=== PATIENT | male | born 1960 | race Two or more races ===

== ENCOUNTER 2024-09-12 14:25 | Emergency (ER) | payer MEDICAID, SELFPAY ==
[2024-09-12] VITALS (9 sets, daily range): BP systolic 70–135; BP diastolic 34–104; PULSE 80–105; RESP 14–20; TEMP 36.5–38.1; O2SAT 95–97
--- NOTE | 2024-09-12 15:39 | XR_ITS ---
Examination: AP chest single view Technique an AP portable upright chest single view Date and time: September 12, 2024 1615 hours Comparison February 27, 2024 INDICATIONS: Chest pain and dizziness beginning 2 days ago. FINDINGS: Mild prominence of the ventricle CABG Cardiac leads satisfactory position. Mild vascular congestion. No lobar pneumonia or pulmonary edema IMPRESSION: Mild vascular congestion. No lobar pneumonia or pulmonary edema
--- NOTE | 2024-09-12 15:40 | EDNOTE_ITS ---
<Statement entered by Yareli Burleson MD - 09/13/24 18:29> As co-signing physician, I was present and available for consult prn. I concur with the plan and care as documented by the midlevel provider. Upper Respiratory Inf. RME/HPI General Chief Complaint: Flu Like Symptoms Stated Complaint: COUGH, WEAKNESS SINCE 10PM LAST NIGHT Time Seen by Provider: 09/12/24 14:37 Arrival date/time: 09/12/24 14:25 RME / HPI RME / HPI Narrative: 64-year-old male patient came in for evaluation regarding cough. Patient is having nonproductive cough since last night associated with generalized body weakness, sore throat, severity moderate. Patient was also noted to have low- grade fever. Denies any chest pain, pain denies any abdominal pain denies any other complaints denies any ill contacts no medication was taken prior to arrival. In the triage patient was noted to have a blood pressure on the mid 70s systolic. Sepsis alert was initiated right away Related Data Home Medications ?Medication ?Instructions ?Recorded ?Confirmed Aspirin Ec * (ECOTRIN *) 81 mg PO QDAY Heart ##0 11/0101/10/23 insulin glargine 100 unit/mL 40 unit subcut BID 01/10/23 subcutaneous solution (Lantus U-100 Insulin) lisinopril 10 mg tablet 10 mg PO QDAY 05/21/2201/10 sitagliptin phosphate 50 1 tab PO BID 05/21/22 mg-metformin 1,000 mg tablet (Janumet) clopidogrel 75 mg tablet (Plavix) 75 mg PO QDAY 01/10/23 empagliflozin 25 mg tablet 25 mg PO QDAY 01/10/2301/01 (Jardiance) Previous Rx's ?Medication ?Instructions ?Recorded azithromycin 500 mg tablet See Rx Instructions PO .COM PLEX #6 05/09/23 tabs benzonatate 100 mg capsule 100 mg PO TID #14 caps 09/24 Allergies Allergy/AdvReac Type Severity Reaction Status Date / Time No Known Allergies Allergy Verified 09/12/24 14:31 Review of Systems Review of Systems Narrative Review of Systems: Review of system reviewed and within normal limits except mentioned in HPI ED Exam Narrative Physical exam: VITAL SIGNS: Reviewed. GENERAL APPEARANCE: Alert and interactive, follows commands, no acute distress, HEAD AND FACE: Non-traumatic. ENT: PERRL, pink conjunctivitis, eyelid no trauma, Mucous membrane moist. NECK: Supple, nontender, no nuchal rigidity. CHEST: No tenderness, no crepitus, no paradoxical movement, no retractions. LUNGS: Clear, well ventilated, symmetric, no rales, no wheezing, no ronchi, no stridor, good breath sounds bilaterally. HEART: Regular rate, regular rhythm, no murmur, no gallops. ABDOMEN: Soft, positive bowel sounds, nondistended, no guarding, nontender, no rebound, no masses, RECTAL: Deferred. GENITAL: Deferred. NEUROLOGICAL: Gross motor function intact sensory function intact, Appropriate for age. MUSCULOSKELETAL: low back nontender, full range of motion. EXTREMITIES: Nontender, full range of motion. SKIN: Color pink, dry, no rash, no lacerations, no abrasions, no contusions. LYMPHATICS: Deferred. Course Quality Measures none Orders Category Date Time Status Bedside COVID-19 Antigen Test NOW Care 09/12/24 15:39 Active Bedside Influenza A&B Antigen Test NOW Care 09/12/24 15:40 Completed EKG (ED ONLY) *Do not use* NOW Care 09/12/24 15:47 Completed Orthostatic Vitals NOW Care 09/12/24 21:55 Active EKG (ED Only) Stat Exams 09/12/24 15:47 Draft XR chest 1V Stat Exams 09/12/24 15:39 Completed Blood Culture (Lab) Stat Lab 09/12/24 15:55 Received CBC [CBC] Stat Lab 09/12/24 15:55 Completed CMP [Comprehensive Metabolic Panel] Stat Lab 09/12/24 15:55 Completed Lactate (Lactic Acid) Stat Lab 09/12/24 15:55 Completed Procalcitonin Stat Lab 09/12/24 15:55 Completed Troponin I Stat Lab 09/12/24 15:55 Completed UA, C/S IF [Urinalysis, C/S if Indicated] Stat Lab 09/12/24 17:35 Completed Ibuprofen Tab [Motrin Tab] Med 09/12/24 15:39 Discontinued 800 mg PO X1 ONE Ringers Lactated 1000 ml [Lactated Ringers] 1,000 ml Med 09/12/24 15:46 Discontinued IV 999 mls/hr Ringers Lactated 1000 ml [Lactated Ringers] 1,000 ml Med 09/12/24 15:47 Discontinued IV 999 mls/hr Ringers Lactated 1000 ml [Lactated Ringers] 1,000 ml Med 09/12/24 20:23 Discontinued IV 999 mls/hr Vital Signs Vital signs: Vital Signs Temperature 100.5 F H 09/12/24 15:46 Pulse Rate 105 H 09/12/24 15:46 Respiratory Rate 18 09/12/24 15:46 Blood Pressure 72/52 L 09/12/24 15:46 Pulse Oximetry (%) 96 09/12/24 15:46 Oxygen Delivery Method Room Air 09/12/24 15:46 Upper Respiratory Infection MDM Narrative [facility] Narrative:: 64-year-old male patient came in for evaluation regarding cough. Patient is having nonproductive cough since last night associated with generalized body weakness, sore throat, severity moderate. Patient was also noted to have low- grade fever. Denies any chest pain, pain denies any abdominal pain denies any other complaints denies any ill contacts no medication was taken prior to arrival. Sepsis alert was initiated arrived for fever and tachycardia. EKG as interpreted by me shows normal sinus rhythm, ventricular rate of 91 bpm, IL interval 188 MS, no ST segment elevation depression noted. Patient's workup today all came back normal no leukocytosis, chest x-ray came back unremarkable. EKG showed sinus rhythm, ventricular 91 bpm, no ST segment ovation depression noted. Patient received total of 3 L IV fluids, on multiple evaluation, patient's blood pressure was noted to be stable, above 120 systolic prior to discharge. No orthostatic hypotension noted. Patient data External records reviewed:: None Clinical information provided by:: patient Social determinants that could affect healthcare access:: none Patient has the following chronic illnesses:: Hypertension How is presenting disease/condition affected by chronic disease/condition?: exacerbated by Evaluation data The following diagnostics were reviewed and interpreted by me:: lab results, ra diology exam(s) and EKG tracing(s) Lab and/or radiology exams considered but not ordered:: None Interpretation Summary: See results MDM Medications / Prescriptions Medications or Prescriptions considered but not ordered:: None Medication administrations:: Medication Administration History Discontinued Medications Lactated Ringer's (Lactated Ringers) 1,000 mls @ 999 mls/hr IV .Q1H1M ONE Stop: 09/12/24 16:46 Last Infusion: 09/12/24 16:59 Dose: Infused Documented By: Admin: 09/12/24 15:53 Dose: 999 mls/hr Documented By: VG Lactated Ringer's (Lactated Ringers) 1,000 mls @ 999 mls/hr IV .Q1H1M ONE Stop: 09/12/24 16:47 Last Infusion: 09/12/24 16:59 Dose: Infused Documented By: Admin: 09/12/24 15:54 Dose: 999 mls/hr Documented By: VG Lactated Ringer's (Lactated Ringers) 1,000 mls @ 999 mls/hr IV .Q1H1M ONE Stop: 09/12/24 21:23 Last Infusion: 09/12/24 21:53 Dose: Infused Documented By: Admin: 09/12/24 20:50 Dose: 999 mls/hr Documented By: BD Ibuprofen (Ibuprofen Tab 400 Mg Tablet) 800 mg PO X1 ONE Stop: 09/12/24 15:40 Last Admin: 09/12/24 15:44 Dose: 800 mg Documented By: MF IV fluids, ibuprofen Consultations Consultation(s) initiated? (list below): No Diagnosis Upper Respiratory Differential Diagnosis: upper respiratory infection and viral infection Most likely diagnosis given after review of the tests above:: URI, Admission Indicated Admission indicated?: not indicated Explain why admission is indicated or not indicated:: Stable Admission Request Was there a request for admission?: No Disposition Plan Disposition Plan: Discharge Discharge Attestation Discharge Attestation: The patient and all family members were given an opportunity to ask questions and understood the discharge instructions. Discharge instructions specifically effects, indications for sooner follow up or return to the emergency department, and the expected course of current diagnosis. Patient condition: Stable Discharge Plan Plan Patient Disposition: HOME (Self Care) Discharge Disposition comment: Stable Prescriptions/Referrals Prescriptions/Med Rec: No Action Aspirin Ec * (ECOTRIN *) 81 MG TABLET.DR 81 mg PO QDAY Qty: 0 lisinopril 10 mg Tablet 10 mg PO QDAY Janumet 50-1,000 mg Tablet 1 tab PO BID insulin glargine [Lantus U-100 Insulin] 100 unit/mL Solution 40 unit SUBCUT BID clopidogrel [Plavix] 75 mg Tablet 75 mg PO QDAY Jardiance 25 mg Tablet 25 mg PO QDAY benzonatate 100 mg capsule 100 mg PO TID Qty: 14 0RF azithromycin 500 mg tablet See Rx Instructions .ROUTE .COMPLEX Qty: 6 0RF Rx Instructions: take 500 mg today (day 1), then 250 mg for 4 days (days 2-5) Referrals: No Primary/Family,Physician [Primary Care Provider] - In 1 week Problem List Clinical Impression: URI (upper respiratory infection) Patient/Caregiver Discharge Instructions Discharge Activity: activity as tolerated Education Materials: ED URI, Viral, No Abx (Adult) Additional Instructions: Thank you for the opportunity for serving you today. You are stable for discharged . You are advised to: Follow-up with your PCP in 1 to 2 days Return to ED for worsening of symptoms Increase oral fluids Take over the counter tylenol or Motrin as needed Print Language: Chinese Stand Alone Forms: [employer] Award Info., Patient Portal Info Letter
[2024-09-12] MEDS: IBUPROFEN TAB 400 MG TABLET 800 MG PO (15:44)
--- NOTE | 2024-09-12 15:47 | EKG_ITS ---
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
[2024-09-12] MEDS: RINGERS LACTATED 1000 ML 1,000 ML 999 ML IV ×3 (15:53→20:50)
[2024-09-12 16:13] LABS: Lactate (Lactic Acid) 2.1 mMol/L (0.4-2.0)
[2024-09-12 16:15] LABS: Basophils # (Auto) 0.1 Thou/mm3 (0.0-0.2); Basophils % (Auto) 1 % (0-2.5); Eosinophils # (Auto) 0.2 Thou/mm3 (0.0-0.5); Eosinophils % (Auto) 2 % (0-10); Hematocrit 47.3 % (41.0-53.0); Hemoglobin 16.7 g/dL (13.5-16.0); Immature Granulocytes % (Auto) 0 % (0-0); Immature Granulocytes Auto 0.03 Thou/mm3 (0.00-0.00); Lymphocytes # (Auto) 1.6 Thou/mm3 (1.0-4.8); Lymphocytes % (Auto) 16 % (10-50); Mean Corpuscular HGB Conc 35.3 g/dl (31.0-37.0); Mean Corpuscular Hemoglobin 31.1 pg (25.0-35.0); Mean Corpuscular Volume 88 fL (80-100); Monocytes # (Auto) 1.3 Thou/mm3 (0.0-0.8); Monocytes % (Auto) 13 % (0-12); Neutrophils # (Auto) 6.7 Thou/mm3 (1.8-7.7); Neutrophils % (Auto) 68 % (37-80); Nucleated Red Blood Cell % 0 /100 WBC (0); Platelet Count 233 Thou/mm3 (140-440); RDW Standard Deviation 42.5 fL (35.1-43.9); Red Blood Count 5.37 Miln/mm3 (4.50-5.90); White Blood Count 9.8 Thou/mm3 (3.8-10.6)
[2024-09-12 16:51] LABS: Alanine Aminotransferase 27 U/L (10-49); Albumin, Serum 4.6 gm/dL (3.4-4.8); Albumin/Globulin Ratio 1.5 (1.2-2.2); Alkaline Phosphatase 130 U/L (46-116); Anion Gap 10 (7-16); Aspartate Amino Transferase 48 U/L (0-34); BUN/Creatinine Ratio 14 Ratio (12-20); Blood Urea Nitrogen 18 mg/dL (9-23); Calcium 9.2 mg/dL (8.3-10.6); Calcium (Corrected) 9.2 mg/dL (8.5-10.1); Carbon Dioxide 31.2 mMol/L (20.0-31.0); Chloride 96 mMol/L (98-107); Creatinine (Component) 1.3 mg/dL (0.6-1.3); Glucose 191 mg/dL (74-106); Osmolality,Calculated 280 (275-295); Potassium 4.1 mMol/L (3.4-5.1); Procalcitonin 0.17 ng/ml (0.0-0.49); Sodium 137 mMol/L (136-145); Total Protein 7.6 gm/dL (5.7-8.2); Troponin I 0.044 ng/mL (0.0-0.045); eGFR > 60 See Note
[2024-09-12 17:45] LABS: Collection Type, Urine Clean Catch; Squamous Epithelial Cell,Urine 0 /hpf (0-5)
[2024-09-12 17:56] LABS: Bilirubin,Urine Negative (Negative); Blood,Urine Negative (Negative); Clarity,Urine Clear (Clear/Hazy); Color,Urine Lt-Yellow (Lt Yel-Yel); Culture Indicated,Urine Not Indicated; Glucose, Urine 4+ (Negative); Ketones,Urine Negative (Negative); Leukocyte Esterase,Urine Negative (Negative); Nitrite,Urine Negative (Negative); Protein,Urine Trace (Neg - Trace); RBC,Urine 2 /hpf (0-3); Specific Gravity,Urine 1.028 (1.001-1.035); Sperm,Urine Present; Urobilinogen,Urine Negative mg/dL (0.0-1.0); WBC,Urine 1 /hpf (0-5)
[2024-09-12 19:10] LABS: Reflex Lactate? Y
--- NOTE | 2024-09-12 19:49 | PC.NURSE ---
ambulated pt around er b/p after ambulation sitting position b/p 74/52 on right arm rechecked left arm 102/62. notified KACEY JEFFERS
== END 2024-09-12 22:19 | disposition home or self-care (01) ==
PROVIDERS: Nurse Practitioner Family; Emergency Provider Emergency Medicine
DX: J06.9 Acute upper respiratory infection, unspecified (principal); I25.2 Old myocardial infarction
CPT/HCPCS: 36415; 71045; 80053; 81001; 83605; 84145; 84484; 85025; 87040; 87400; 87811; 93005; 96360; 96361; 99284; J7120; A9270

== ENCOUNTER 2024-09-13 20:58 | Emergency (ER) | payer MEDICAID, SELFPAY ==
[2024-09-13 21:01] VITALS: BMI 31.4
[2024-09-13 21:15] VITALS: BP 126/74; PULSE 90; RESP 20; TEMP 36.9; O2SAT 96
--- NOTE | 2024-09-13 21:32 | EDNOTE_ITS ---
<Statement entered by Yareli Burleson MD - 09/14/24 03:41> As co-signing physician, I was present and available for consult prn. I concur with the plan and care as documented by the midlevel provider. ED Skin Abcess FB-RME/HPI General Chief complaint: Ankle/Foot Injury Stated complaint: RIGHT FOOT SWELLING AND REDNESS Time Seen by Provider: 09/13/24 21:27 Arrival date/time: 09/13/24 20:58 64M with history of HTN, DM, and CAD presents to ED with 1 day of R foot redness and swelling after he accidentally stepped on a nail yesterday. Patient has had a tetanus shot in the past 5 years. Limitations: no limitations Related Data Home Medications ?Medication ?Instructions ?Recorded ?Confirmed Aspirin Ec * (ECOTRIN *) 81 mg PO QDAY Heart ##0 11/0101/10/23 insulin glargine 100 unit/mL 40 unit subcut BID 01/10/23 subcutaneous solution (Lantus U-100 Insulin) lisinopril 10 mg tablet 10 mg PO QDAY 05/21/2201/10 sitagliptin phosphate 50 1 tab PO BID 05/21/22 mg-metformin 1,000 mg tablet (Janumet) clopidogrel 75 mg tablet (Plavix) 75 mg PO QDAY 01/10/23 empagliflozin 25 mg tablet 25 mg PO QDAY 01/10/2301/01 (Jardiance) Previous Rx's ?Medication ?Instructions ?Recorded azithromycin 500 mg tablet See Rx Instructions PO .COM PLEX #6 05/09/23 tabs benzonatate 100 mg capsule 100 mg PO TID #14 caps 09/24 ciprofloxacin HCl 500 mg tablet 500 mg PO BID 7 days # 14 tabs 09/13/24 (Cipro) clindamycin HCl 300 mg capsule 600 mg (2 x 300 mg) PO BID 7 days 09/13/24 #28 caps Allergies Allergy/AdvReac Type Severity Reaction Status Date / Time No Known Allergies Allergy Verified 09/13/24 21:00 Review of Systems Review of Systems Systems Reviewed: All systems reviewed, normal except as documented Constitutional Constitutional: Reports system reviewed and no additional complaints, except as documented, Denies fever(s) and Denies headache(s) ENT Ears, Nose, Mouth, and Throat: Denies disequilibrium and Denies headache(s) Cardiovascular Cardiovascular: Reports system reviewed and no additional complaints, except as documented, Denies chest pain and Denies dyspnea Respiratory Respiratory: Reports system reviewed and no additional complaints, except as documented, Denies cough and Denies dyspnea Gastrointestinal Gastrointestinal: Reports system reviewed and no additional complaints, except as documented, Denies abdominal pain, Denies nausea and Denies vomiting Integumentary/Breasts Skin/Breast: Reports as per HPI and Reports skin pain Neurologic Neurologic: Reports system reviewed and no additional complaints, except as documented, Denies confusion, Denies disequilibrium and Denies headache(s) Psychiatric Psychiatric: Denies confusion Past Medical History Past Medical History NEUROLOGIC: Negative Neurological Disorders CARDIAC: Positive Myocardial Infarction, Hypercholesterolemia, Congestive Heart Failure, Cellulitis and Hypertension; Negative Cardiac Disorders RESPIRATORY: Negative Chronic Obstructive Pulmonary Disease (COPD) or Asthma GASTROINTESTINAL: Positive Gastrointestinal Disorders GENITOURINARY: Negative Renal Disease ENDOCRINE: Positive Diabetes Mellitus Type 2; Negative Diabetes Mellitus Type 1 HEMATOLOGIC: Negative Blood Disorders or Sickle Cell Disease OTHER HISTORY: Positive Hospitalization; Negative Falls, Blood Transfusions, Anesthesia Reactions or Cancer Family History FAMILY HISTORY: Positive Family Cardiac Disorders Surgical History SURGICAL: Positive Cardiac Surgery, Open Heart Surgery, Coronary Stent and Pacemaker Social History SMOKING STATUS: Never smoker ED Exam General Limitations: Present no limitations General appearance: Present alert and in no apparent distress Head Head exam: Present atraumatic Eye Eye exam: Present normal appearance, PERRL and EOMI ENT ENT exam: Present normal exam, normal oropharynx and mucous membranes moist Neck Neck exam: Present normal inspection, full ROM and trachea midline Chest Chest inspection: Present normal inspection and symmetric chest wall rise Respiratory Respiratory exam: Present normal lung sounds bilaterally Cardiovascular Cardiovascular exam: Present regular rate, normal rhythm and normal heart sounds Abdominal Exam Abdominal exam: Present soft and normal bowel sounds Extremities Exam Extremities exam: Present full ROM Expanded Lower Extremity Exam Foot/toe exam: Present full ROM, tenderness, swelling, erythema and puncture wound (R plantar) Back Exam Back exam: Present normal inspection and full ROM Neurological Exam Neurological exam: Present alert, oriented X3 and CN II-XII intact Psychiatric Psychiatric exam: Present normal affect and normal mood Skin Skin exam: Present warm, dry, intact and normal color Course Quality Measures none Orders Category Date Time Status Ciprofloxacin HCl [Ciprofloxacin] Med 09/13/24 21:27 Once 500 mg PO X1 ONE Clindamycin [Cleocin] Med 09/13/24 21:29 Once 300 mg PO X1 ONE Vital Signs Vital signs: Vital Signs Temperature 98.5 F 09/13/24 21:15 Pulse Rate 90 09/13/24 21:15 Respiratory Rate 20 09/13/24 21:15 Blood Pressure 126/74 09/13/24 21:15 Pulse Oximetry (%) 96 09/13/24 21:15 Oxygen Delivery Method Room Air 09/13/24 21:15 O2 at 96% on RA and WNLs Skin / Abscess / Foreign Body MDM Narrative MDM Narrative:: 64M with history of HTN, DM, and CAD presents to ED with 1 day of R foot redness and swelling after he accidentally stepped on a nail yesterday. Patient has had a tetanus shot in the past 5 years. Physical exam reveals closed R plantar puncture wound with surrounding redness, swelling, and tenderness. Patient is afebrile, calm, and alert. Meds given. Will cover broadly given DM history. Patient data External records reviewed:: [facility] previous records Clinical information provided by:: patient Social determinants that could affect healthcare access:: none Patient has the following chronic illnesses:: HTN, DM, and CAD How is presenting disease/condition affected by chronic disease/condition?: exacerbated by Evaluation data The following diagnostics were reviewed and interpreted by me:: other (specify) (none) Lab and/or radiology exams considered but not ordered:: not ordered Interpretation Summary: n/a Medications / Prescriptions Medications or Prescriptions considered but not ordered:: ordered Medication administrations:: Medication Administration History Ciprofloxacin (Ciprofloxacin Hcl 250 Mg Tablet) 500 mg PO X1 ONE Stop: 09/13/24 21:28 Clindamycin HCl (Clindamycin 150 Mg Capsule) 300 mg PO X1 ONE Stop: 09/13/24 21:30 above Consultations Consultation(s) initiated? (list below): No Diagnosis Skin/Abscess Differential Diagnosis: abscess of skin or subcutaneous tissue, viral exanthem, dermatophytosis, urticaria, herpes zoster, allergic reaction to drug, cellulitis, eczema, insect bites, impetigo, contact dermatitis and other (puncture wound) Most likely diagnosis given after review of the tests above:: puncture wound Admission Indicated Admission indicated?: not indicated Admission Request Was there a request for admission?: No Disposition Plan Disposition Plan: Discharge Discharge Attestation Discharge Attestation: The patient and all family members were given an opportunity to ask questions and understood the discharge instructions. Discharge instructions specifically effects, indications for sooner follow up or return to the emergency department, and the expected course of current diagnosis. Patient condition: Stable Discharge Plan Plan Patient Disposition: HOME (Self Care) Discharge Disposition comment: Stable Prescriptions/Referrals Prescriptions/Med Rec: New clindamycin HCl 300 mg capsule 600 mg PO BID 7 Days Qty: 28 0RF ciprofloxacin HCl [Cipro] 500 mg tablet 500 mg PO BID 7 Days Qty: 14 0RF No Action Aspirin Ec * (ECOTRIN *) 81 MG TABLET.DR 81 mg PO QDAY Qty: 0 lisinopril 10 mg Tablet 10 mg PO QDAY Janumet 50-1,000 mg Tablet 1 tab PO BID insulin glargine [Lantus U-100 Insulin] 100 unit/mL Solution 40 unit SUBCUT BID clopidogrel [Plavix] 75 mg Tablet 75 mg PO QDAY Jardiance 25 mg Tablet 25 mg PO QDAY benzonatate 100 mg capsule 100 mg PO TID Qty: 14 0RF azithromycin 500 mg tablet See Rx Instructions .ROUTE .COMPLEX Qty: 6 0RF Rx Instructions: take 500 mg today (day 1), then 250 mg for 4 days (days 2-5) Problem List Clinical Impression: Puncture wound of foot Patient/Caregiver Discharge Instructions Education Materials: ED Puncture Wound (Foot) Additional Instructions: Please follow-up with PCP within 24-48 hours and return immediately if symptoms worsen. Print Language: Georgian Stand Alone Forms: Patient Portal Info Letter CLAUS/GREGORY Supervising Physician CLAUS/GREGORY Supervising Physician: Dr. Burleson
[2024-09-13] MEDS: CIPROFLOXACIN HCL 250 MG TABLET 500 MG PO (21:37)
[2024-09-13] MEDS: CLINDAMYCIN 150 MG CAPSULE 300 MG PO (21:37)
== END 2024-09-13 23:16 | disposition home or self-care (01) ==
LOC: SERX 21:31
PROVIDERS: Emergency Provider Emergency Medicine; PCP Family Medicine
DX: S91.331A Puncture wound without foreign body, right foot, initial encounter (principal); W45.0XXA Nail entering through skin, initial encounter
CPT/HCPCS: 99282; A9270

== ENCOUNTER 2024-09-17 12:30 | Inpatient (IN) | payer MEDICAID, SELFPAY ==
[2024-09-17 12:33] VITALS: BP 122/68; PULSE 89; RESP 18; TEMP 37.6; O2SAT 97; BMI 31.4
--- NOTE | 2024-09-17 12:57 | XR_ITS ---
Examination: Foot, right, 3 views Technique: AP, oblique, lateral views foot, 3 views Date and time of exam: September 17, 2024 1309 hours INDICATIONS: Stepped on a foreign body glass week with foot pain. FINDINGS: Soft tissue vascular calcification No acute fracture Soft tissue swelling plantar to the first metatarsophalangeal joint No opaque foreign body IMPRESSION: No opaque foreign body
--- NOTE | 2024-09-17 13:01 | XR_ITS ---
Examination: Duplex scan of the lower extremity, unilateral right Date and time of exam: 05/20/2024 1321 hours INDICATIONS: Right leg swelling and pain 5 days after injury to the leg Technique: Duplex scan of the extremity veins using B-mode/grayscale imaging and Doppler spectral analysis and color flow Attention is directed to internal echogenicity, compression and augmentation involving these veins, color flow assessment, spectral analysis Findings: Major deep venous structures in the extremity demonstrate normal course and caliber. There is no evidence of deep vein thrombosis. Normal color flow and spectral analysis Impression: Negative for DVT..
--- NOTE | 2024-09-17 13:57 | PD.EDLOWEX ---
Lower Extremity Injury RME/HPI General Chief Complaint: Extremity Injury, Lower Stated Complaint: PAIN/SWELLING R) LEG SINCE MONDAY Time Seen by Provider: 09/17/24 12:37 Arrival date/time: 09/17/24 12:30 64M with history of HTN, DM, and CAD presents to ED with 5-day history of R foot redness and swelling after he accidentally stepped on a nail 5 days ago. Patient has had a tetanus shot in the past 5 years. Currently patient is on antibiotics prescribed on last visit here in the emergency department patient reports that he now has significant swelling and redness Limitations: no limitations Related Data Home Medications ?Medication ?Instructions ?Recorded ?Confirmed Aspirin Ec * (ECOTRIN *) 81 mg PO QDAY Heart ##0 11/11/15 01/10/23 insulin glargine 100 unit/mL 40 unit subcut BID 05/21/22 01/10/23 subcutaneous solution (Lantus U-100 Insulin) lisinopril 10 mg tablet 10 mg PO QDAY 05/21/22 01/10/23 sitagliptin phosphate 50 1 tab PO BID 05/21/22 01/10/23 mg-metformin 1,000 mg tablet (Janumet) clopidogrel 75 mg tablet (Plavix) 75 mg PO QDAY 01/10/23 01/10/23 empagliflozin 25 mg tablet 25 mg PO QDAY 01/10/23 01/10/23 (Jardiance) Previous Rx's ?Medication ?Instructions ?Recorded azithromycin 500 mg tablet See Rx Instructions PO .COMPLEX #6 05/09/23 tabs benzonatate 100 mg capsule 100 mg PO TID #14 caps 05/09/23 ciprofloxacin HCl 500 mg tablet 500 mg PO BID 7 days #14 tabs 09/13/24 (Cipro) clindamycin HCl 300 mg capsule 600 mg (2 x 300 mg) PO BID 7 days 09/13/24 #28 caps Allergies Allergy/AdvReac Type Severity Reaction Status Date / Time No Known Allergies Allergy Verified 09/17/24 12:36 Review of Systems Review of Systems Systems Reviewed: All systems reviewed, normal except as documented Constitutional Constitutional: Reports system reviewed and no additional complaints, except as documented, Denies fever(s) and Denies headache(s) Eyes Eyes: Reports system reviewed and no additional complaints, except as documented and Denies blurry vision ENT Ears, Nose, Mouth, and Throat: Reports system reviewed and no additional complaints, except as documented, Denies headache(s), Denies nasal congestion and Denies nasal discharge Cardiovascular Cardiovascular: Reports system reviewed and no additional complaints, except as documented, Denies chest pain and Denies dyspnea Respiratory Respiratory: Reports system reviewed and no additional complaints, except as documented, Denies chest congestion, Denies cough and Denies dyspnea Gastrointestinal Gastrointestinal: Reports system reviewed and no additional complaints, except as documented and Denies abdominal pain Musculoskeletal Musculoskeletal: Reports system reviewed and no additional complaints, except as documented, Reports abnormal gait, Reports arthralgias and Reports other (Swelling redness right foot) Integumentary/Breasts Skin/Breast: Reports system reviewed and no additional complaints, except as documented, Denies rash and Reports wounds (Small puncture wound plantar aspect right foot) Neurologic Neurologic: Reports system reviewed and no additional complaints, except as documented, Reports as per HPI, Reports abnormal gait and Denies headache(s) Past Medical History Past Medical History NEUROLOGIC: Negative Neurological Disorders CARDIAC: Positive Myocardial Infarction, Hypercholesterolemia, Congestive Heart Failure, Cellulitis and Hypertension; Negative Cardiac Disorders RESPIRATORY: Negative Chronic Obstructive Pulmonary Disease (COPD) or Asthma GASTROINTESTINAL: Positive Gastrointestinal Disorders GENITOURINARY: Negative Renal Disease ENDOCRINE: Positive Diabetes Mellitus Type 2; Negative Diabetes Mellitus Type 1 HEMATOLOGIC: Negative Blood Disorders or Sickle Cell Disease OTHER HISTORY: Positive Hospitalization; Negative Falls, Blood Transfusions, Anesthesia Reactions or Cancer Family History FAMILY HISTORY: Positive Family Cardiac Disorders Surgical History SURGICAL: Positive Cardiac Surgery, Open Heart Surgery, Coronary Stent and Pacemaker Social History SMOKING STATUS: Former smoker ED Exam General Limitations: Present no limitations General appearance: Present alert and in no apparent distress Head Head exam: Present atraumatic, normocephalic and normal inspection Eye Eye exam: Present normal appearance, PERRL and EOMI; Absent conjunctival injection ENT ENT exam: Present normal exam, normal oropharynx and mucous membranes moist Neck Neck exam: Present normal inspection, full ROM and trachea midline Chest Chest inspection: Present normal inspection and symmetric chest wall rise Respiratory Respiratory exam: Present normal lung sounds bilaterally Cardiovascular Cardiovascular exam: Present regular rate, normal rhythm and normal heart sounds Abdominal Exam Abdominal exam: Present soft and normal bowel sounds Extremities Exam Extremities exam: Present full ROM, tenderness and normal capillary refill; Absent joint swelling Back Exam Back exam: Present normal inspection and full ROM Neurological Exam Neurological exam: Present alert, oriented X3 and CN II-XII intact Psychiatric Psychiatric exam: Present normal affect and normal mood Skin Skin exam: Present warm, dry, intact and normal color Course Quality Measures none Orders Category Date Time Status COVID-19 Screening Questionnaire NOW Care 09/17/24 13:59 Active Decision to Admit X1 Care 09/17/24 13:59 Completed Insert IV NOW Care 09/17/24 14:01 Active US venous doppler LE RT Stat Exams 09/17/24 13:01 Completed XR foot comp RT min 3V Stat Exams 09/17/24 12:57 Completed A1C [Glycohemoglobin w (eAG)] Stat Lab 09/17/24 13:42 Completed Blood Culture (Lab) Stat Lab 09/17/24 13:47 Received CBC Stat Lab 09/17/24 13:42 Completed CMP [Comprehensive Metabolic Panel] Stat Lab 09/17/24 14:42 Completed CRP [C-Reactive Protein] Stat Lab 09/17/24 14:42 Completed ESR [Sed Rate (ESR)] Stat Lab 09/17/24 13:42 Completed Lactic Acid [Lactate (Lactic Acid)] Stat Lab 09/17/24 13:42 Completed PT [Prothrombin Time with INR] Stat Lab 09/17/24 13:42 Completed Procalcitonin Stat Lab 09/17/24 14:42 Completed Morphine Inj Med 09/17/24 15:58 Discontinued 1 mg IVP X1 ONE Ondansetron Inj [Zofran Inj] Med 09/17/24 15:58 Discontinued 4 mg IVP X1 ONE Piper/Tazo 3.375 gm Premix [Zosyn] Med 09/17/24 14:00 Discontinued 3.375 gm in 50 ml IV X1 Vital Signs Vital signs: Vital Signs Temperature 99.6 F 09/17/24 12:33 Pulse Rate 89 09/17/24 12:33 Respiratory Rate 18 09/17/24 12:33 Blood Pressure 122/68 09/17/24 12:33 Pulse Oximetry (%) 97 09/17/24 12:33 Oxygen Delivery Method Room Air 09/17/24 12:33 O2 saturation 97% room air within normal limits Extremity Injury, Lower MDM Narrative MDM Narrative:: 64M with history of HTN, DM, and CAD presents to ED with 5-day history of R foot redness and swelling after he accidentally stepped on a nail 5 days ago. Patient has had a tetanus shot in the past 5 years. Currently patient is on antibiotics prescribed on last visit here in the emergency department patient reports that he now has significant swelling and redness On exam patient has swelling redness of the right foot patient has significant cellulitis Patient require admission as he has failed outpatient therapy and symptoms of worsen Ultrasound right lower extremity obtained no acute DVT noted x-ray is negative for any acute foreign bodies Lab work obtained 1533 I spoke with hospitalist who will admit the patient Patient data External records reviewed:: [facility] previous records Clinical information provided by:: patient Social determinants that could affect healthcare access:: none Patient has the following chronic illnesses:: See history How is presenting disease/condition affected by chronic disease/condition?: exacerbated by Evaluation data The following diagnostics were reviewed and interpreted by me:: lab results and radiology exam(s) Lab and/or radiology exams considered but not ordered:: Labs radiology obtain Interpretation Summary: Reviewed by me Medications / Prescriptions Medications or Prescriptions considered but not ordered:: Given Medication administrations:: Medication Administration History Acetaminophen (Acetaminophen 325 Mg Tablet) 650 mg PO Q6H PRN PRN Reason: Fever >101.5 Stop: 10/17/24 16:08 Hydrocodone Bitart/Acetaminophen (Hydrocodone/Apap 5/325 Tablet) 1 tab PO Q6HR PRN PRN Reason: moderate pain 4-6 Stop: 09/22/24 16:22 Clopidogrel Bisulfate (Clopidogrel Bisulfate 75 Mg Tablet) 75 mg PO QDAY [facility] Stop: 10/18/24 16:44 Dextrose (Dextrose 50%-Water Inj 50 Ml Syringe) 25 ml IV Q15MIN PRN PRN Reason: BG 50-70 responsive npo pt Stop: 10/17/24 16:25 Dextrose (Dextrose 50%-Water Inj 50 Ml Syringe) 50 ml IV Q15MIN PRN PRN Reason: BG <50 OR BG <70 & pt unresponsive Stop: 10/17/24 16:25 Furosemide (Furosemide 40 Mg Tablet) 40 mg PO QDAY [facility] Stop: 10/18/24 08:59 Glucagon (Glucagon Inj 1 Mg Vial) 1 mg IM Q15MIN PRN PRN Reason: BG <70, and no IV access Heparin Sodium (Porcine) (Heparin Sod Inj 5000 Unit/Ml Vial) 5,000 unit SC Q8HR [facility] Stop: 10/01/24 21:59 Vancomycin/Sodium Chloride (Vancomycin/Ns 1 Gm Ivpb) 200 mls @ 120 mls/hr IV X1 ONE Stop: 09/17/24 18:09 Ampicillin Sodium/Sulbactam (Sodium 3 gm/ Sodium Chloride) 100 mls @ 200 mls/hr IV Q6HR [facility] Stop: 09/24/24 22:29 Insulin Glargine (Insulin Glargine (Lantus) 5 Unit/0.05 Ml (Per 5 Units)) 30 unit SC QDAY [facility] Stop: 10/17/24 16:29 Insulin Human Lispro (Insulin Lispro (Admelog) 1 Unit/0.01 Ml Unit) 0 unit SC AC [facility]; Protocol Stop: 10/17/24 16:59 Lisinopril (Lisinopril 20 Mg Tablet) 10 mg PO QDAY [facility] Stop: 10/17/24 16:44 Morphine Sulfate (Morphine Sulf Inj 10 Mg/Ml Vial) 1 mg IVP Q2H PRN PRN Reason: PAIN SCALE 7-10 (Severe Stop: 09/22/24 16:08 Ondansetron HCl (Ondansetron Inj 2 Mg/Ml Inj 2 Ml) 4 mg IVP Q6H PRN; Protocol PRN Reason: NAUSEA OR VOMITING Stop: 10/17/24 16:08 Pharmacy Consult (Vancomycin Pharmacy To Dose 1 Each Each) 1 each IV QDAY PRN PRN Reason: CONSULT Stop: 10/17/24 16:29 Sennosides (Senna Tablet) 1 tab PO BID PRN; Protocol PRN Reason: CONSTIPATION Stop: 10/17/24 16:08 Discontinued Medications Piperacillin/Tazobactam/Dextrose (Zosyn) 3.375 gm in 50 mls @ 100 mls/hr IV X1 ONE Stop: 09/17/24 14:29 Last Admin: 09/17/24 16:06 Dose: 100 mls/hr Documented By: KRISTEN Ampicillin Sodium/Sulbactam (Sodium 3 gm/ Sodium Chloride) 100 mls @ 200 mls/hr IV Q6HR [facility] Stop: 09/24/24 17:59 Morphine Sulfate (Morphine Sulf Inj 10 Mg/Ml Vial) 1 mg IVP X1 ONE Stop: 09/17/24 15:59 Last Admin: 09/17/24 16:06 Dose: 1 mg Documented By: KRISTEN Ondansetron HCl (Ondansetron Inj 2 Mg/Ml Inj 2 Ml) 4 mg IVP X1 ONE; Protocol Stop: 09/17/24 15:59 Last Admin: 09/17/24 16:06 Dose: 4 mg Documented By: KRISTEN Oxycodone/Acetaminophen (Oxycodone/Apap 5/325 Tablet) 1 tab PO Q4H PRN PRN Reason: PAIN SCALE 4-6 (Moderate Stop: 09/22/24 16:08 Given Consultations Consultation(s) initiated? (list below): No Diagnosis Extremity Injury, Lower Differential Diagnosis: other (Cellulitis, abscess, foreign body) Most likely diagnosis given after review of the tests above:: Cellulitis Admission Indicated Admission indicated?: not indicated Admission Request Was there a request for admission?: No Disposition Plan Disposition Plan: Discharge Discharge Attestation Discharge Attestation: The patient and all family members were given an opportunity to ask questions and understood the discharge instructions. Discharge instructions specifically effects, indications for sooner follow up or return to the emergency department, and the expected course of current diagnosis. Patient condition: Stable Discharge Plan Plan Patient Disposition: Admit Acute Care w/in Hospital Discharge Disposition comment: Stable Problem List Clinical Impression: Cellulitis of leg, right, Puncture wound of foot, right PA/DIRECTOR POWER Supervising Physician PA/DIRECTOR POWER Supervising Physician: Dr. schafer
[2024-09-17 14:03] LABS: Lactate (Lactic Acid) 1.4 mMol/L (0.4-2.0)
[2024-09-17 14:08] LABS: Basophils # (Auto) 0.1 Thou/mm3 (0.0-0.2); Basophils % (Auto) 1 % (0-2.5); Eosinophils # (Auto) 0.1 Thou/mm3 (0.0-0.5); Eosinophils % (Auto) 1 % (0-10); Hematocrit 40.9 % (41.0-53.0); Hemoglobin 14.3 g/dL (13.5-16.0); Immature Granulocytes % (Auto) 0 % (0-0); Immature Granulocytes Auto 0.02 Thou/mm3 (0.00-0.00); Lymphocytes # (Auto) 1.4 Thou/mm3 (1.0-4.8); Lymphocytes % (Auto) 13 % (10-50); Mean Corpuscular Hemoglobin 31.3 pg (25.0-35.0); Mean Corpuscular Volume 90 fL (80-100); Monocytes # (Auto) 1.1 Thou/mm3 (0.0-0.8); Monocytes % (Auto) 10 % (0-12); Neutrophils # (Auto) 7.8 Thou/mm3 (1.8-7.7); Neutrophils % (Auto) 75 % (37-80); Nucleated Red Blood Cell % 0 /100 WBC (0); Platelet Count 248 Thou/mm3 (140-440); RDW Standard Deviation 42.5 fL (35.1-43.9); Red Blood Count 4.57 Miln/mm3 (4.50-5.90); White Blood Count 10.5 Thou/mm3 (3.8-10.6)
[2024-09-17 14:21] LABS: Prothrombin Time 11.4 Seconds (9.0-12.2)
[2024-09-17 14:41] LABS: Sed Rate (ESR) 71 mm/hr (0-20)
[2024-09-17 14:47] LABS: Glucose Estimated Average 209 mg/dL (80-131); Hemoglobin A1C 8.9 % Hgb (4.8-6.0)
[2024-09-17 15:56] LABS: Alanine Aminotransferase 17 U/L (10-49); Albumin, Serum 4.4 gm/dL (3.4-4.8); Albumin/Globulin Ratio 1.5 (1.2-2.2); Alkaline Phosphatase 100 U/L (46-116); Anion Gap 10 (7-16); Aspartate Amino Transferase 21 U/L (0-34); BUN/Creatinine Ratio 14 Ratio (12-20); Bilirubin,Total 0.8 mg/dL (0.3-1.2); Blood Urea Nitrogen 14 mg/dL (9-23); C-Reactive Protein 9.1 mg/dL (0.0-0.9); Calcium 9.1 mg/dL (8.3-10.6); Calcium (Corrected) 9.1 mg/dL (8.5-10.1); Carbon Dioxide 25.3 mMol/L (20.0-31.0); Chloride 101 mMol/L (98-107); Estimated Creatinine Clearance 71.8 mL/min (>60); Glucose 268 mg/dL (74-106); Osmolality,Calculated 281 (275-295); Potassium 4.5 mMol/L (3.4-5.1); Procalcitonin 0.16 ng/ml (0.0-0.49); Sodium 136 mMol/L (136-145); Total Protein 7.4 gm/dL (5.7-8.2); eGFR > 60 See Note
[2024-09-17] MEDS: PIPER/TAZO 3.375 GM PREMIX 3.375 GM/50 ML BAG IV (16:06)
[2024-09-17] MEDS: MORPHINE SULF INJ 10 MG/ML VIAL IVP (16:06)
[2024-09-17] MEDS: ONDANSETRON INJ 2 MG/ML INJ 2 ML 4 MG IVP (16:06)
[2024-09-17 16:13] VITALS: BP 149/89; PULSE 85; RESP 16; TEMP 36.7; O2SAT 97
--- NOTE | 2024-09-17 16:14 | PC.NURSE ---
Hospitalists at bedside to evaluate patient for admission, patient to er with c/o right foot injury. Patient states he stepped on metal this past and monday morning his foot was swollen, hot and red, cms intact, moderate redness noted to anterior and posterior foot. New orders received from hospitalists for pain medication. Pt. c/o 01/10 pain to right foot. Per hospitalists, will place admission orders, call light within reach.
--- NOTE | 2024-09-17 16:35 | PD.RESHP ---
Documentation for date of: 09/17/24 HPI History of Present Illness History of present illness: Mr. Davenport is a 62-year-old male with past medical history significant for hypertension, hyperlipidemia, insulin diabetes mellitus, CABG (in 2008), CAD status post stent, HFrEF status post [employer] placed approximately 3 to [address] Coy in [place] presented to the ED after noticing swelling in pain in his right foot. Patient stated he stepped on a metal wire on and came to the ED on Monday but was discharged on oral antibiotics which he has been taking since then. However patient noticed redness and swelling on Monday which he thought would get better with the antibiotics. However patient stated that the pain became unbearable which prompted him to come to the ED. patient denies any other associating symptoms like numbness tingling in his feet did not notice any discharge or open cuts or wounds in his foot. Patient denies any chest pain, palpitations dizziness shortness of breath, or abdominal pain. ED course In the ED patient's blood pressure is 122/68, pulse 89 temperature 99.6 Labs are within normal findings with the exception of ESR 71, C-reactive protein 9.1 glucose 268, hemoglobin A1c 8.9 Right foot x-ray shows soft tissue swelling plantar to the first metatarsaopharyngeal joint Ultrasound of right lower extremity is negative for DVTs In the ED patient received Zosyn x 1 PMH: Hypertension, hyperlipidemia, type 2 diabetes, HFrEF, CAD status post stent PSH: CABG in 2008, [employer] LOAN placement (2024) SH: Former tobacco smoker (quit 2018), denies alcohol or illicit drug use Home meds: Lantus 40 units, atorvastatin, lisinopril, Plavix, Jardiance, Janumet and aspirin Review of Systems Review of Systems Systems Reviewed: All systems reviewed, normal except as documented Exam Vital Signs Temp Pulse Resp BP Pulse Ox O2 Del Method 98.0 F 85 16 149/89 H 97 Room Air 09/17/24 16:13 09/17/24 16:13 09/17/24 16:13 09/17/24 16:13 09/17/24 16:13 09/17/24 16:13 Narrative Exam GENERAL: A&Ox3 [place] speaking cooperative, well groomed male, appears to be in mild distress due to pain NEURO: no focal neurological deficits HEENT: Atraumatic, Normocephalic. mucous membranes moist. Eyes open, symmetrical, & clear HEART: Normal Heart Sounds, [employer] device noticed on left side of chest LUNGS: Clear to auscultation with no wheezing or crackles. ABDOMEN: soft, non-distended, non-tender, bowel sounds heard, no guarding or rebound tenderness SKIN: No Rash or ecchymoses, erythematous,edematous and warm right foot EXTREMITIES: No edema, tenderness, able to move all 4 extremities Results: Labs 09/17/24 13:42 09/17/24 14:42 Labs: Short CBC 09/17/24 Range/Units 13:42 WBC 10.5 (3.8-10.6) Thou/mm3 Hgb 14.3 D (13.5-16.0) g/dL Hct 40.9 L (41.0-53.0) % Plt Count 248 (140-440) Thou/mm3 BMP 09/17/24 14:42 Sodium 136 Potassium 4.5 Chloride 101 Carbon Dioxide 25.3 BUN 14 Creatinine 1.0 Glucose 268 H Calcium 9.1 Liver Function 09/17/24 Range/Units 14:42 Total Bilirubin 0.8 (0.3-1.2) mg/dL AST 21 (0-34) U/L ALT 17 (10-49) U/L Alkaline Phosphatase 100 (46-116) U/L Albumin 4.4 (3.4-4.8) gm/dL Quality Measures Quality Measures none Advance care planning discussed with:: patient Medications Home Medications and Allergies Home Medications ?Medication ?Instructions ?Recorded ?Confirmed ?Type Aspirin Ec * (ECOTRIN *) 81 mg PO QDAY Heart ##0 11/11/15 01/10/23 History insulin glargine 100 unit/mL 40 unit subcut BID 05/21/22 01/10/23 History subcutaneous solution (Lantus U-100 Insulin) lisinopril 10 mg tablet 10 mg PO QDAY 05/21/22 01/10/23 History sitagliptin phosphate 50 1 tab PO BID 05/21/22 01/10/23 History mg-metformin 1,000 mg tablet (Janumet) clopidogrel 75 mg tablet (Plavix) 75 mg PO QDAY 01/10/23 01/10/23 History empagliflozin 25 mg tablet 25 mg PO QDAY 01/10/23 01/10/23 History (Jardiance) Allergies Allergy/AdvReac Type Severity Reaction Status Date / Time No Known Allergies Allergy Verified 09/17/24 12:36 Visit Medications Acetaminophen (Acetaminophen 325 Mg Tablet) 650 mg PO Q6H PRN PRN Reason: Fever >101.5 Stop: 10/17/24 16:08 Hydrocodone Bitart/Acetaminophen (Hydrocodone/Apap 5/325 Tablet) 1 tab PO Q6HR PRN PRN Reason: moderate pain 4-6 Stop: 09/22/24 16:22 Clopidogrel Bisulfate (Clopidogrel Bisulfate 75 Mg Tablet) 75 mg PO QDAY [facility] Stop: 10/18/24 16:44 Dextrose (Dextrose 50%-Water Inj 50 Ml Syringe) 25 ml IV Q15MIN PRN PRN Reason: BG 50-70 responsive npo pt Stop: 10/17/24 16:25 Dextrose (Dextrose 50%-Water Inj 50 Ml Syringe) 50 ml IV Q15MIN PRN PRN Reason: BG <50 OR BG <70 & pt unresponsive Stop: 10/17/24 16:25 Furosemide (Furosemide 40 Mg Tablet) 40 mg PO QDAY [facility] Stop: 10/18/24 08:59 Glucagon (Glucagon Inj 1 Mg Vial) 1 mg IM Q15MIN PRN PRN Reason: BG <70, and no IV access Heparin Sodium (Porcine) (Heparin Sod Inj 5000 Unit/Ml Vial) 5,000 unit SC Q8HR [facility] Stop: 10/01/24 21:59 Vancomycin/Sodium Chloride (Vancomycin/Ns 1 Gm Ivpb) 200 mls @ 120 mls/hr IV X1 ONE Stop: 09/17/24 18:09 Ampicillin Sodium/Sulbactam (Sodium 3 gm/ Sodium Chloride) 100 mls @ 200 mls/hr IV Q6HR [facility] Stop: 09/24/24 22:29 Insulin Glargine (Insulin Glargine (Lantus) 5 Unit/0.05 Ml (Per 5 Units)) 30 unit SC QDAY [facility] Stop: 10/17/24 16:29 Insulin Human Lispro (Insulin Lispro (Admelog) 1 Unit/0.01 Ml Unit) 0 unit SC [facility]; Protocol Stop: 10/17/24 16:59 Lisinopril (Lisinopril 2.5 Mg Tablet) 10 mg PO QDAY [facility] Stop: 10/17/24 16:44 Morphine Sulfate (Morphine Sulf Inj 10 Mg/Ml Vial) 1 mg IVP Q2H PRN PRN Reason: PAIN SCALE 7-10 (Severe Stop: 09/22/24 16:08 Ondansetron HCl (Ondansetron Inj 2 Mg/Ml Inj 2 Ml) 4 mg IVP Q6H PRN; Protocol PRN Reason: NAUSEA OR VOMITING Stop: 10/17/24 16:08 Pharmacy Consult (Vancomycin Pharmacy To Dose 1 Each Each) 1 each IV QDAY PRN PRN Reason: CONSULT Stop: 10/17/24 16:29 Sennosides (Senna Tablet) 1 tab PO BID PRN; Protocol PRN Reason: CONSTIPATION Stop: 10/17/24 16:08 Discontinued Medications Piperacillin/Tazobactam/Dextrose (Zosyn) 3.375 gm in 50 mls @ 100 mls/hr IV X1 ONE Stop: 09/17/24 14:29 Last Admin: 09/17/24 16:06 Dose: 100 mls/hr Ampicillin Sodium/Sulbactam (Sodium 3 gm/ Sodium Chloride) 100 mls @ 200 mls/hr IV Q6HR [facility] Stop: 09/24/24 17:59 Morphine Sulfate (Morphine Sulf Inj 10 Mg/Ml Vial) 1 mg IVP X1 ONE Stop: 09/17/24 15:59 Last Admin: 09/17/24 16:06 Dose: 1 mg Ondansetron HCl (Ondansetron Inj 2 Mg/Ml Inj 2 Ml) 4 mg IVP X1 ONE; Protocol Stop: 09/17/24 15:59 Last Admin: 09/17/24 16:06 Dose: 4 mg Oxycodone/Acetaminophen (Oxycodone/Apap 5/325 Tablet) 1 tab PO Q4H PRN PRN Reason: PAIN SCALE 4-6 (Moderate Stop: 09/22/24 16:08 Assessment & Plan Plan Mr. Davenport is a 62-year-old male with past medical history significant for hypertension, hyperlipidemia, insulin diabetes mellitus, CABG (in 2008), CAD status post stent, HFrEF status post [employer] placed approximately 3 to [address] Coy in [place] presented to the ED after noticing swelling in pain in his right foot after stepping on metal wire. Pt is admitted to med-tele for IV antibiotics. #Cellulitis, right foot Patient stepped on a metal wire on a , was discharged with oral antibiotics however patient continued to have swelling, erythema, warmth and worsening pain in the right foot. Right foot x-ray shows soft tissue swelling plantar to the first metatarsaopharyngeal joint ESR 71, C-reactive protein 9.1 Plan: -Unasyn and vancomycin started 09/17- -pain control as needed ordered -Wound care ordered -CT of right lower extremity ordered #Insulin-dependent diabetes mellitus - Hemoglobin A1c of 8.9 on 09/17/24 -Patient's home medications include Janumet, Januvia, 40 units of Lantus - Blood glucuse on admission 268 (pt states he did not take his diabetes medications since monday) -Glargine 30 units daily ordered - Insulin sliding scale ordered - hypoglycemia protocol ordered - Accu-Cheks AC #Hx of HFrEF s/p [employer]AN #History of CAD status post stents #Hx. of CABG #Hyperlipidemia -Resumed patient's home lisinopril, Plavix, Lasix -Pt follows Dr. Coy in [place] and states he is upto date with echo -Echo in our records is from 01/09/23: Normal LV size. Moderate systolic dysfunction. Moderate global hypokinesis wall motion. Estimated EF 35-40% -Will resume remainder after patient's med rec is completed Health Maintenance Disposition: Med-tele for IV antibiotics DVT Prophylaxis: Heparin 5000 units SC Q8 hrs GI Prophylaxis: not indicated Diet: carbohydrate consistent Lines: Peripheral lines Code status: Full Assessment and plan discussed with my attending physician Dr. Yanet Betts (PGY-1)- Internal medicine resident Attending Provider Attestation/Addendum Face to face evaluation was performed by me. I have personally seen and examined the patient. I discussed the assessment and plan with the entire medicine team. I reviewed available medical records, imaging studies, laboratory results. I agree with the above subjective data, objective findings, assessment and plan except as corrected by me or noted below Right lower extremity pain and swelling due to below Right lower extremity cellulitis, puncture wound Type 2 diabetes with hyperglycemia requiring chronic insulin therapy - Placed on IV antibiotics Unasyn and vancomycin for now, cultures, obtain CT of right lower leg?rule out deep infection/abscess. Insulin for diabetes More than > 30 minutes spent on the encounter
[2024-09-17] MEDS: VANCOMYCIN/NS 1 GM IVPB 200 ML IV (17:12)
--- NOTE | 2024-09-17 17:20 | PC.NURSE ---
Patient gone to ct via gurney with transporter.
--- NOTE | 2024-09-17 17:23 | XR_ITS ---
Examination: CT right lower extremity, without contrast. 2-D sagittal reconstructions. 2-D coronal reconstructions. 3-D reconstructions. Date and time of exam:September 17, 2024 1717 hours INDICATIONS: Redness swelling and pain involving the lower leg on the right after injury 3 days ago CTDI: vol (mGy):6.52 DLP: (mGycm):119 Technique: Multiple 1.25 mm axial sections of the right lower leg without intravenous contrast have been obtained. 2-D sagittal and coronal reconstructions have been obtained. 3-D reconstructions have been obtained. Low dose protocols were performed. One or more of the following dose reduction techniques were used; automated exposure control, adjustment of the mA and/or KV according to patient size, use of iterative reconstruction technique. Findings: Heavy vascular calcification Edema in the subcutaneous tissue posterior lower leg, ankle and around the foot including plantar surface of the foot No cortical bone destruction or findings of osteomyelitis No soft tissue abscess IMPRESSION: Diffuse cellulitis pattern. No soft tissue abscess Negative for osteomyelitis
[2024-09-17 17:34] VITALS: PULSE 85
[2024-09-17 18:01] VITALS: BP 121/86; PULSE 84
[2024-09-17] MEDS: Lisinopril 20 MG TABLET 10 MG PO (18:01)
[2024-09-17] MEDS: INSULIN GLARGINE (Lantus) 5 UNIT/0.05 ML (PER 5 UNITS) 30 UNIT SC (18:05)
[2024-09-17] MEDS: INSULIN LISPRO (AdmeLOG) 1 UNIT/0.01 ML UNIT SC (18:06)
[2024-09-17 19:26] VITALS: BP 121/86; PULSE 84; RESP 18; TEMP 36.7; O2SAT 98
[2024-09-17 19:47] VITALS: BMI 30.8
[2024-09-17 20:00] VITALS: BP 126/86; PULSE 91; RESP 19; TEMP 36.5; O2SAT 98
[2024-09-17] MEDS: AMPICILLIN/SULBAC INJ 3 GM in SODIUM CHLORIDE 0.9% (POP) 100 ML IV (21:37)
[2024-09-17] MEDS: HEPARIN SOD INJ 5000 UNIT/ML VIAL SC (21:38)
[2024-09-18] VITALS (7 sets, daily range): BP systolic 102–132; BP diastolic 66–82; PULSE 75–84; RESP 15–97; TEMP 36.1–36.5; O2SAT 95–98
[2024-09-18 05:09] LABS: Basophils # (Auto) 0.1 Thou/mm3 (0.0-0.2); Basophils % (Auto) 1 % (0-2.5); Eosinophils # (Auto) 0.4 Thou/mm3 (0.0-0.5); Eosinophils % (Auto) 5 % (0-10); Hemoglobin 13.3 g/dL (13.5-16.0); Immature Granulocytes % (Auto) 1 % (0-0); Immature Granulocytes Auto 0.05 Thou/mm3 (0.00-0.00); Lymphocytes # (Auto) 1.8 Thou/mm3 (1.0-4.8); Lymphocytes % (Auto) 23 % (10-50); Mean Corpuscular Hemoglobin 31.5 pg (25.0-35.0); Mean Corpuscular Volume 90 fL (80-100); Monocytes # (Auto) 0.8 Thou/mm3 (0.0-0.8); Monocytes % (Auto) 10 % (0-12); Neutrophils # (Auto) 4.7 Thou/mm3 (1.8-7.7); Neutrophils % (Auto) 60 % (37-80); Nucleated Red Blood Cell % 0 /100 WBC (0); Platelet Count 308 Thou/mm3 (140-440); RDW Standard Deviation 43.1 fL (35.1-43.9); Red Blood Count 4.22 Miln/mm3 (4.50-5.90); White Blood Count 7.8 Thou/mm3 (3.8-10.6)
[2024-09-18 05:20] LABS: Glucose Estimated Average 206 mg/dL (80-131); Hemoglobin A1C 8.8 % Hgb (4.8-6.0)
[2024-09-18] MEDS: AMPICILLIN/SULBAC INJ 3 GM in SODIUM CHLORIDE 0.9% (POP) 100 ML IV (05:37)
[2024-09-18] MEDS: HEPARIN SOD INJ 5000 UNIT/ML VIAL SC (05:38)
[2024-09-18 05:59] LABS: Alanine Aminotransferase 15 U/L (10-49); Albumin, Serum 3.8 gm/dL (3.4-4.8); Albumin/Globulin Ratio 1.4 (1.2-2.2); Alkaline Phosphatase 95 U/L (46-116); Anion Gap 10 (7-16); Aspartate Amino Transferase 18 U/L (0-34); BUN/Creatinine Ratio 14 Ratio (12-20); Bilirubin,Total 0.5 mg/dL (0.3-1.2); Blood Urea Nitrogen 13 mg/dL (9-23); Calcium 9.2 mg/dL (8.3-10.6); Calcium (Corrected) 9.4 mg/dL (8.5-10.1); Carbon Dioxide 25.2 mMol/L (20.0-31.0); Cardiac Risk Estimate 4.7 RATIO (4.0-6.7); Chloride 103 mMol/L (98-107); Cholesterol 104 mg/dL (132-200); Creatinine (Component) 0.9 mg/dL (0.6-1.3); Globulin 2.7 gm/dL (2.3-3.5); Glucose 219 mg/dL (74-106); HDL Cholesterol 22 mg/dL (40-60); LDL Cholesterol,Calculated 62 mg/dL (0-130); Magnesium 1.8 mg/dL (1.6-2.6); Osmolality,Calculated 282 (275-295); Potassium 4.5 mMol/L (3.4-5.1); Sodium 138 mMol/L (136-145); Total Protein 6.5 gm/dL (5.7-8.2); Triglycerides 100 mg/dL (30-150); eGFR > 60 See Note
[2024-09-18] MEDS: Furosemide 40 MG TABLET PO (08:33)
[2024-09-18] MEDS: Lisinopril 20 MG TABLET 10 MG PO (08:33)
[2024-09-18] MEDS: INSULIN GLARGINE (Lantus) 5 UNIT/0.05 ML (PER 5 UNITS) 30 UNIT SC (08:35)
[2024-09-18] MEDS: INSULIN LISPRO (AdmeLOG) 1 UNIT/0.01 ML UNIT SC (08:35)
--- NOTE | 2024-09-18 09:16 | PC.SS ---
Follow up note: On IV antibiotic. Blood cultures are pending.
[2024-09-18] MEDS: VANCOMYCIN/NS 1 GM IVPB 200 ML IV (10:20)
--- NOTE | 2024-09-18 10:57 | ESDS_ITS ---
Planned Discharge Date 09/18/24 DS: Providers Provider Date of admission: 09/17/24 16:09 Primary care physician: Physician No Primary/Family Admitting Provider: You Holt MD Attending Provider on Admission: Leny Cao MD Consults: 09/17/24 16:22 Referral Wound Care Routine Comment: Attending Provider on DC: Andrea Betts MD Discharging Provider: Andrea Betts MD DS: Diagnosis Problem List Completed Was Problem List Reviewed/Reconciled?: Yes Hospital Course Hospital Course Hospital course: Mr. Davenport is a 62-year-old male with past medical history significant for hypertension, hyperlipidemia, insulin diabetes mellitus, CABG (in 2008), CAD status post stent, HFrEF status post CHILD WELFARE DIRECTOR placed approximately 3 to [address] Coy in [place] presented to [facility] ED on 09/17/24 after noticing swelling in pain in his right foot. Patient stated he stepped on a metal wire on and came to the ED on Monday but was discharged on oral antibiotics which showed no improvement. Imaging of the right foot showed soft tissue swelling plantar to the first metaphalangeal joint and ultrasound was negative for DVT. CT of the right foot showed diffuse cellulitis pattern no soft tissue abscess and was negative for osteomyelitis. Patient was started on IV antibiotics and wound care was ordered. The next day patient had significant improvement in his pain remain afebrile with no white count and patient is hemodynamically stable to be discharged home to self-care. Discharge Recommendations -Follow up with primary care physician within 1 week of discharge -Keep your foot clean and dry, and avoid walking barefoot -You have been prescribed antibiotics for additional 9 days, please complete the course as directed -Continue rest of medications as previously prescribed -Return to the ED or call EMS if symptoms return and/or worsen Hospitalization Diagnosis #Cellulitis, right foot #Insulin-dependent diabetes mellitus #Hx of HFrEF s/p CHILD WELFARE DIRECTOR #History of CAD status post stents #Hx. of CABG #Hyperlipidemia Time Spent with Patient Time attestation: Total time spent providing and/or coordinating discharge services: Time spent: Greater than 30 minutes Exam Vital Signs Temp Pulse Resp BP Pulse Ox O2 Del Method 97.7 F 77 18 106/66 95 Room Air 09/18/24 08:10 09/18/24 10:45 09/18/24 08:10 09/18/24 08:33 09/18/24 08:10 09/18/24 08:10 Narrative Exam GENERAL: A&Ox3 [place]auan speaking cooperative, well groomed male, appears to be in mild distress due to pain NEURO: no focal neurological deficits HEENT: Atraumatic, Normocephalic. mucous membranes moist. Eyes open, symmetrical, & clear HEART: Normal Heart Sounds, CHILD WELFARE DIRECTOR device noticed on left side of chest LUNGS: Clear to auscultation with no wheezing or crackles. ABDOMEN: soft, non-distended, non-tender, bowel sounds heard, no guarding or rebound tenderness SKIN: No Rash or ecchymoses, erythematous,edematous and warm right foot EXTREMITIES: No edema, tenderness, able to move all 4 extremities Discharge Plan Plan Patient Disposition: HOME (Self Care) Patient condition on transfer: Stable Care Plan Goals: -Follow up with primary care physician within 1 week of discharge -Keep your foot clean and dry, and avoid walking barefoot -You have been prescribed antibiotics for additional 9 days, please complete the course as directed -Continue rest of medications as previously prescribed -Return to the ED or call EMS if symptoms return and/or worsen -Colton un seguimiento con strong medico de cabecera dentro de marian semana despues. -Mantenga strong pie limpio y seco y evite caminar descalzo. -Le carvalho recetado antibioticos johanna 9 sheridan adicionales. Complete el tratamiento dom las indicaciones. -Coninue tomando el shazia de seda medicamentos dom lo prescrito previamente. -Regrese al departamento de emergencias medicas si los sintomas regresan y/o empeoran. Prescriptions/Referrals Prescriptions/Med Rec: New amoxicillin-pot clavulanate 875-125 mg tablet 1 tab PO BID 9 Days Qty: 18 0RF doxycycline hyclate 100 mg tablet 100 mg PO BID 9 Days Qty: 18 0RF Continued Aspirin Ec * (ECOTRIN *) 81 MG TABLET.DR 81 mg PO QDAY Qty: 0 furosemide 40 mg tablet 40 mg PO DAILY Patient Comments: TAKE 1 TABLET BY MOUTH ONCE DAILY atorvastatin 80 mg tablet 80 mg PO DAILY Patient Comments: TAKE 1 TABLET BY MOUTH ONCE DAILY Jardiance 25 mg tablet 25 mg PO QAM clopidogrel [Plavix] 75 mg tablet 75 mg PO QDAY Janumet 50-1,000 mg tablet 1 tab PO BID lisinopril 10 mg Tablet 10 mg PO QDAY insulin glargine [Lantus U-100 Insulin] 100 unit/mL Solution 40 unit SUBCUT BID Discontinued Janumet 50-1,000 mg Tablet 1 tab PO BID clopidogrel [Plavix] 75 mg Tablet 75 mg PO QDAY Jardiance 25 mg Tablet 25 mg PO QDAY clindamycin HCl 300 mg capsule 600 mg PO BID 7 Days Qty: 28 0RF ciprofloxacin HCl [Cipro] 500 mg tablet 500 mg PO BID 7 Days Qty: 14 0RF Referrals: No Primary/Family,Physician [Primary Care Provider] - Patient/Caregiver Discharge Instructions Education Materials: Discharge Instructions for Cellulitis Print Language: Palauan Stand Alone Forms: Yanni Award Info., Patient Portal Info Letter Discharge Order Discharge Orders: Discharge (Routine); Ordered 09/18/24 Ordered By: Andrea Betts Quality Discharge Quality Measures VTE prophylaxis
--- NOTE | 2024-09-18 12:25 | PC.NURSE ---
1200 pt is discharged, papers are signed, Milton ALEXIS as copying machine mechanic
--- NOTE | 2024-09-18 15:49 | PC.SS ---
SS met with patient regarding his d/c plan. Pt is alert/oriented. Pt was admitted for Cellulites. Pt confirmed demographic and contact information is correct on facesheet. Pt resides with brothers. Pt ambulates independently without assistance or DME. Pt is ok with all ADLs. Patient?s pharmacy of choice is [facility]. Pt named his brother, Zach Xavier medical decision maker if he is unable. Patient?s choice is to return home upon d/c. Pt states he followed up with PCP in September. D/C plan: Return home Next of Kin: Zach Xavier, brother, phone# [phone] PCP: [facility] Address: Correct on facesheet
== END 2024-09-18 14:29 | disposition home or self-care (01) | DRG 383 ==
LOC: SERX 15:00 → SERHOLD 16:27 → S3NX 09-18 06:31 → SERHOLD 09-19 06:23 → S3NX 09-19 06:23
PROVIDERS: Nurse Practitioner Primary Care; Admitting Provider Internal Medicine; Emergency Provider Family Medicine; Visit Provider Internal Medicine
DX: L03.115 Cellulitis of right lower limb (principal); Z95.5 Presence of coronary angioplasty implant and graft; I25.10 Atherosclerotic heart disease of native coronary artery without angina pectoris; I11.0 Hypertensive heart disease with heart failure; I50.22 Chronic systolic (congestive) heart failure; E78.5 Hyperlipidemia, unspecified; W45.0XXA Nail entering through skin, initial encounter; Z87.891 Personal history of nicotine dependence; Z79.4 Long term (current) use of insulin; S91.331A Puncture wound without foreign body, right foot, initial encounter; E11.65 Type 2 diabetes mellitus with hyperglycemia; Z79.02 Long term (current) use of antithrombotics/antiplatelets; Z79.84 Long term (current) use of oral hypoglycemic drugs; Z95.1 Presence of aortocoronary bypass graft
CPT/HCPCS: 36415; 73630; 73700; 80053; 80061; 83036; 83605; 83735; 84100; 84145; 85025; 85610; 85652; 86140; 87040; 93225; 93971; 96365; 96366; 96367; 96372; 96375; G0378; J0295; J1644; J1815; J2270; J2405; J2543; J3370; A9270

== ENCOUNTER → 2024-10-17 | Outpatient (CLI) | payer MEDICAID, SELFPAY | END | disposition home or self-care (01) | PROVIDERS: PCP Family Medicine; Referring Provider Family Medicine; Visit Provider Student in an Organized Health Care Education/Training Program | DX: E11.621 Type 2 diabetes mellitus with foot ulcer (principal); L97.515 Non-pressure chronic ulcer of other part of right foot with muscle involvement without evidence of necrosis; S91.331A Puncture wound without foreign body, right foot, initial encounter; W22.8XXA Striking against or struck by other objects, initial encounter; I10 Essential (primary) hypertension; I73.9 Peripheral vascular disease, unspecified; I50.9 Heart failure, unspecified; Z95.0 Presence of cardiac pacemaker; Z89.422 Acquired absence of other left toe(s); Z87.891 Personal history of nicotine dependence; Z79.4 Long term (current) use of insulin; Z79.84 Long term (current) use of oral hypoglycemic drugs | CPT/HCPCS: 97597; 99212; A9270; G0463 ==

== ENCOUNTER → 2024-10-21 | Outpatient (CLI) | payer MEDICAID, SELFPAY | END | disposition home or self-care (01) | PROVIDERS: PCP Family Medicine; Referring Provider Family Medicine; Visit Provider Student in an Organized Health Care Education/Training Program | DX: E11.621 Type 2 diabetes mellitus with foot ulcer (principal); L97.512 Non-pressure chronic ulcer of other part of right foot with fat layer exposed; S91.331A Puncture wound without foreign body, right foot, initial encounter; W22.8XXA Striking against or struck by other objects, initial encounter; I10 Essential (primary) hypertension; I73.9 Peripheral vascular disease, unspecified; I50.9 Heart failure, unspecified; Z95.0 Presence of cardiac pacemaker; Z89.422 Acquired absence of other left toe(s); Z79.4 Long term (current) use of insulin; Z79.84 Long term (current) use of oral hypoglycemic drugs | CPT/HCPCS: 11042; A9270 ==

== ENCOUNTER → 2024-10-28 | Outpatient (CLI) | payer MEDICAID, SELFPAY | END | disposition home or self-care (01) | LOC: SWHD 14:35 | PROVIDERS: PCP Family Medicine; Referring Provider Family Medicine; Visit Provider Student in an Organized Health Care Education/Training Program | DX: E11.621 Type 2 diabetes mellitus with foot ulcer (principal); L97.512 Non-pressure chronic ulcer of other part of right foot with fat layer exposed; S91.331A Puncture wound without foreign body, right foot, initial encounter; W22.8XXA Striking against or struck by other objects, initial encounter; I73.9 Peripheral vascular disease, unspecified; I50.9 Heart failure, unspecified; Z95.0 Presence of cardiac pacemaker; Z89.422 Acquired absence of other left toe(s); Z79.4 Long term (current) use of insulin; Z79.84 Long term (current) use of oral hypoglycemic drugs | CPT/HCPCS: 97597; A9270 ==

== ENCOUNTER → 2024-11-04 | Outpatient (CLI) | payer MEDICAID, SELFPAY | END | disposition home or self-care (01) | LOC: SWHD 14:40 | PROVIDERS: PCP Family Medicine; Referring Provider Family Medicine; Visit Provider Surgery | DX: E11.621 Type 2 diabetes mellitus with foot ulcer (principal); S91.331A Puncture wound without foreign body, right foot, initial encounter; W22.8XXA Striking against or struck by other objects, initial encounter; L97.515 Non-pressure chronic ulcer of other part of right foot with muscle involvement without evidence of necrosis; I73.9 Peripheral vascular disease, unspecified; I50.9 Heart failure, unspecified; Z95.0 Presence of cardiac pacemaker; Z89.422 Acquired absence of other left toe(s); Z79.4 Long term (current) use of insulin; Z79.84 Long term (current) use of oral hypoglycemic drugs | CPT/HCPCS: 11042; A9270 ==

== ENCOUNTER → 2024-11-11 | Outpatient (CLI) | payer MEDICAID, SELFPAY | END | disposition home or self-care (01) | LOC: SWHD 13:53 | PROVIDERS: PCP Family Medicine; Referring Provider Family Medicine; Visit Provider Student in an Organized Health Care Education/Training Program | DX: E11.621 Type 2 diabetes mellitus with foot ulcer (principal); S91.331A Puncture wound without foreign body, right foot, initial encounter; W22.8XXA Striking against or struck by other objects, initial encounter; L97.515 Non-pressure chronic ulcer of other part of right foot with muscle involvement without evidence of necrosis; I50.9 Heart failure, unspecified; Z95.0 Presence of cardiac pacemaker; Z89.422 Acquired absence of other left toe(s); Z79.4 Long term (current) use of insulin; Z79.84 Long term (current) use of oral hypoglycemic drugs | CPT/HCPCS: 11043; A9270 ==

== ENCOUNTER → 2024-11-20 | Outpatient (CLI) | payer MEDICAID, SELFPAY | END | disposition home or self-care (01) | PROVIDERS: PCP Family Medicine; Referring Provider Family Medicine; Visit Provider Student in an Organized Health Care Education/Training Program | DX: S91.331A Puncture wound without foreign body, right foot, initial encounter (principal); W22.8XXA Striking against or struck by other objects, initial encounter; L97.515 Non-pressure chronic ulcer of other part of right foot with muscle involvement without evidence of necrosis; I50.9 Heart failure, unspecified; Z95.0 Presence of cardiac pacemaker; Z79.84 Long term (current) use of oral hypoglycemic drugs; Z79.4 Long term (current) use of insulin | CPT/HCPCS: 97597; A9270 ==

== ENCOUNTER → 2024-11-27 | Outpatient (CLI) | payer MEDICAID, SELFPAY | END | disposition home or self-care (01) | LOC: SWHD 11:27 | PROVIDERS: PCP Family Medicine; Referring Provider Family Medicine; Visit Provider Student in an Organized Health Care Education/Training Program | DX: S91.331A Puncture wound without foreign body, right foot, initial encounter (principal); W22.8XXA Striking against or struck by other objects, initial encounter; L97.515 Non-pressure chronic ulcer of other part of right foot with muscle involvement without evidence of necrosis; I50.9 Heart failure, unspecified; Z79.4 Long term (current) use of insulin; Z79.84 Long term (current) use of oral hypoglycemic drugs | CPT/HCPCS: 97597; A9270 ==

== ENCOUNTER → 2024-12-04 | Outpatient (CLI) | payer MEDICAID, SELFPAY | END | disposition home or self-care (01) | LOC: SWHD 13:09 | PROVIDERS: PCP Family Medicine; Referring Provider Family Medicine; Visit Provider Student in an Organized Health Care Education/Training Program | DX: S91.331A Puncture wound without foreign body, right foot, initial encounter (principal); W22.8XXA Striking against or struck by other objects, initial encounter; L97.515 Non-pressure chronic ulcer of other part of right foot with muscle involvement without evidence of necrosis; I50.9 Heart failure, unspecified; Z79.4 Long term (current) use of insulin; Z79.84 Long term (current) use of oral hypoglycemic drugs | CPT/HCPCS: 97597; A9270 ==

== ENCOUNTER → 2024-12-13 | Outpatient (CLI) | payer MEDICAID, SELFPAY | END | disposition home or self-care (01) | LOC: SWHD 13:03 | PROVIDERS: PCP Family Medicine; Referring Provider Family Medicine; Visit Provider Surgery | DX: S91.331A Puncture wound without foreign body, right foot, initial encounter (principal); W22.8XXA Striking against or struck by other objects, initial encounter; L97.512 Non-pressure chronic ulcer of other part of right foot with fat layer exposed; I50.9 Heart failure, unspecified; Z79.84 Long term (current) use of oral hypoglycemic drugs; Z79.4 Long term (current) use of insulin | CPT/HCPCS: 97597; A9270 ==

== ENCOUNTER → 2024-12-23 | Outpatient (CLI) | payer MEDICAID, SELFPAY | END | disposition home or self-care (01) | LOC: SWHD 13:49 | PROVIDERS: PCP Family Medicine; Referring Provider Family Medicine; Visit Provider Surgery | DX: S91.331A Puncture wound without foreign body, right foot, initial encounter (principal); W22.8XXA Striking against or struck by other objects, initial encounter; L97.512 Non-pressure chronic ulcer of other part of right foot with fat layer exposed; I50.9 Heart failure, unspecified; Z79.84 Long term (current) use of oral hypoglycemic drugs; Z79.4 Long term (current) use of insulin | CPT/HCPCS: 11042; A9270 ==

== ENCOUNTER → 2024-12-30 | Outpatient (CLI) | payer MEDICAID, SELFPAY | END | disposition home or self-care (01) | LOC: SWHD 13:26 | PROVIDERS: PCP Family Medicine; Referring Provider Family Medicine; Visit Provider Student in an Organized Health Care Education/Training Program | DX: S91.331A Puncture wound without foreign body, right foot, initial encounter (principal); W22.8XXA Striking against or struck by other objects, initial encounter; E11.621 Type 2 diabetes mellitus with foot ulcer; L97.512 Non-pressure chronic ulcer of other part of right foot with fat layer exposed; Z79.84 Long term (current) use of oral hypoglycemic drugs; I25.10 Atherosclerotic heart disease of native coronary artery without angina pectoris; Z89.421 Acquired absence of other right toe(s); I11.9 Hypertensive heart disease without heart failure | CPT/HCPCS: 11042; A9270 ==

== ENCOUNTER → 2025-01-08 | Outpatient (CLI) | payer MEDICAID, SELFPAY | END | disposition home or self-care (01) | LOC: SWHD 13:38 | PROVIDERS: PCP Family Medicine; Referring Provider Family Medicine; Visit Provider Student in an Organized Health Care Education/Training Program | DX: S91.331A Puncture wound without foreign body, right foot, initial encounter (principal); W22.8XXA Striking against or struck by other objects, initial encounter; E11.621 Type 2 diabetes mellitus with foot ulcer; L97.512 Non-pressure chronic ulcer of other part of right foot with fat layer exposed; Z79.84 Long term (current) use of oral hypoglycemic drugs; I25.10 Atherosclerotic heart disease of native coronary artery without angina pectoris; I11.0 Hypertensive heart disease with heart failure | CPT/HCPCS: 11042; A9270 ==

== ENCOUNTER → 2025-01-13 | Outpatient (CLI) | payer MEDICAID, SELFPAY | END | disposition home or self-care (01) | LOC: SWHD 08:37 | PROVIDERS: PCP Family Medicine; Referring Provider Family Medicine; Visit Provider Student in an Organized Health Care Education/Training Program | DX: S91.331A Puncture wound without foreign body, right foot, initial encounter (principal); W22.8XXA Striking against or struck by other objects, initial encounter; E11.621 Type 2 diabetes mellitus with foot ulcer; L97.512 Non-pressure chronic ulcer of other part of right foot with fat layer exposed; Z79.84 Long term (current) use of oral hypoglycemic drugs; I25.10 Atherosclerotic heart disease of native coronary artery without angina pectoris; I11.0 Hypertensive heart disease with heart failure | CPT/HCPCS: 11042; A9270 ==

== ENCOUNTER → 2025-01-20 | Outpatient (CLI) | payer MEDICAID, SELFPAY | END | disposition home or self-care (01) | LOC: SWHD 09:09 | PROVIDERS: PCP Family Medicine; Referring Provider Family Medicine; Visit Provider Student in an Organized Health Care Education/Training Program | DX: S91.331A Puncture wound without foreign body, right foot, initial encounter (principal); W22.8XXA Striking against or struck by other objects, initial encounter; E11.621 Type 2 diabetes mellitus with foot ulcer; L97.512 Non-pressure chronic ulcer of other part of right foot with fat layer exposed; Z79.84 Long term (current) use of oral hypoglycemic drugs; I25.10 Atherosclerotic heart disease of native coronary artery without angina pectoris; I11.0 Hypertensive heart disease with heart failure | CPT/HCPCS: 97597; A9270 ==

== ENCOUNTER → 2025-01-27 | Outpatient (CLI) | payer MEDICAID, SELFPAY ==
[2025-01-27 15:02] LABS: Blood Urea Nitrogen 15 mg/dL (9-23); Creatinine (Component) 1.0 mg/dL (0.6-1.3); eGFR > 60 See Note
== END | disposition home or self-care (01) ==
LOC: COPL 12:51
PROVIDERS: PCP Family Medicine; Referring Provider Nurse Practitioner Family; Visit Provider Nurse Practitioner Family
DX: I70.244 Atherosclerosis of native arteries of left leg with ulceration of heel and midfoot (principal)
CPT/HCPCS: 36415; 82565; 84520

== ENCOUNTER → 2025-02-03 | Outpatient (CLI) | payer MEDICAID, SELFPAY | END | disposition home or self-care (01) | LOC: SWHD 08:47 | PROVIDERS: PCP Family Medicine; Referring Provider Family Medicine; Visit Provider Student in an Organized Health Care Education/Training Program | DX: S91.331A Puncture wound without foreign body, right foot, initial encounter (principal); W22.8XXA Striking against or struck by other objects, initial encounter; E11.621 Type 2 diabetes mellitus with foot ulcer; L97.512 Non-pressure chronic ulcer of other part of right foot with fat layer exposed; Z79.84 Long term (current) use of oral hypoglycemic drugs; I25.10 Atherosclerotic heart disease of native coronary artery without angina pectoris; I11.0 Hypertensive heart disease with heart failure | CPT/HCPCS: 99212; G0463 ==

== ENCOUNTER → 2025-02-05 | Outpatient (CLI) | payer MEDICAID, SELFPAY ==
--- NOTE | 2025-02-05 13:00 | XR_ITS ---
Examination: CTA abdominal aorta iliofemoral runoff. 2-D sagittal coronal reconstructions. 3-D reconstructions, vascular Date and time: February 05, 2025, 1332 hours INDICATIONS: Bilateral lower leg foot and heel numbness, nonhealing ulceration left heel and midfoot left foot 6 months Technique: Multiple CTA images of the abdominal aorta iliofemoral runoff arterial vessels, 2.0 mm slice thickness, post intravenous administration 130 cc [id number] 2-D sagittal coronal reconstructions. 3-D reconstructions, vascular 3-D postprocessing, including vascular maximum intensity projection images, 3-D volume rendering Low dose protocols were performed. One or more of the following dose reduction techniques were used; automated exposure control, adjustment of the mA and/or KV according to patient size, use of iterative reconstruction technique. Findings: Moderate enlargement cardiac contour Atelectasis in the left lower lobe. No visualized liver or splenic lesion No pancreatic mass No hydronephrosis No bowel obstruction Normal appendix No diverticulitis seen Urinary bladder intact Mild prostatomegaly prostate irregular in contour Abdominal aortic calcification no aneurysmal dilatation No significant stenoses origin celiac superior mesenteric axis or renal arteries No significant stenoses common iliac external iliac or common femoral arteries No critical right superficial femoral artery stenoses Popliteal artery fills, occlusion of the proximal right posterior tibial artery Right anterior tibial artery fills to the ankle with filling of the dorsalis pedis 60% short segment stenosis distal left superficial femoral artery axial image 355 Left popliteal artery does fill Multiple occlusions left posterior tibial artery Left anterior tibial artery fills to the ankle including filling of the dorsalis pedis IMPRESSION: 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
== END | disposition home or self-care (01) ==
LOC: SCAT 11:59
PROVIDERS: PCP Family Medicine; Referring Provider Nurse Practitioner Family; Visit Provider Nurse Practitioner Family
DX: I70.208 Unspecified atherosclerosis of native arteries of extremities, other extremity (principal); I77.1 Stricture of artery
CPT/HCPCS: 75635; A4649; Q9967